=== PATIENT | male | born 1965 | race Caucasian/White ===

== ENCOUNTER 2018-08-14 12:49 | Emergency (ER) | payer BC ==
[2018-08-14 12:55] VITALS: TEMP 97.5; BMI 39.5
[2018-08-14] MEDS ORDERED: SODIUM CHLORIDE 0.9% 1000 ML INFUS.BAG IV ONE (13:47)
[2018-08-14 14:17] LABS: BASO % 1.3 % (0-2.0); EOS % 1.8 % (0-4.5); HEMATOCRIT 43.1 % (35.4-49); HEMOGLOBIN 14.4 GM/dL (11.7-16.9); LYMPH % 33.4 % (8-40); MCHC 33.5 g/dl (32.0-35.9); MEAN CELL VOLUME 83.6 fl (80-96); MONO % 5.4 % (3.8-10.2); NEUT % 58.1 % (42.8-82.8); PLATELET COUNT 245 K/MM3 (134-434); RBC 5.16 M/mm3 (4.00-5.60); RDW 13.9 % (11.9-15.9); WHITE BLOOD COUNT 8.5 K/mm3 (4.0-10.0)
[2018-08-14 14:22] LABS: PH,URINE 6.5 (5.0-8.0); URINE APPEARANCE CLEAR; URINE BILIRUBIN NEGATIVE (NEGATIVE); URINE COLOR YELLOW; URINE GLUCOSE (UA) TRACE (NEGATIVE); URINE KETONE NEGATIVE (NEGATIVE); URINE LEUK ESTERASE NEGATIVE (NEGATIVE); URINE NITRITE NEGATIVE (NEGATIVE); URINE PROTEIN NEGATIVE (NEGATIVE); URINE UROBILINOGEN 0.2 mg/dL (0.2-1.0)
[2018-08-14 14:57] LABS: ALBUMIN 3.8 g/dl (3.4-5.0); ALK PHOS 244 U/L (45-117); ANION GAP 6 MMOL/L (8-16); BILIRUBIN,TOTAL 0.3 mg/dL (0.2-1); BLOOD UREA NITROGEN 15 mg/dL (7-18); CALCIUM 9.4 mg/dL (8.5-10.1); CHLORIDE 104 mmol/L (98-107); CO2 29 mmol/L (21-32); CREATININE 1.1 mg/dL (0.55-1.3); GLUCOSE,RANDOM 230 mg/dL (74-106); POTASSIUM 4.4 mmol/L (3.5-5.1); SGOT/AST 72 U/L (15-37); SGPT/ALT 71 U/L (13-61); SODIUM 139 mmol/L (136-145); TOT PROT 6.8 g/dl (6.4-8.2)
--- NOTE | 2018-08-14 15:40 | PDOC ---
Documentation entered by Alma Reinoso SCRIBE, acting as scribe for Fe Yañez MD. Fe Yañez MD: This documentation has been prepared by the Kemar mclean Daisy, SCRIBE, under my direction and personally reviewed by me in its entirety. I confirm that the documentation accurately reflects all work, treatment, procedures, and medical decision making performed by me. History of Present Illness - General Chief Complaint: Weakness Stated Complaint: LEG WEAKNESS History Source: Patient Exam Limitations: No Limitations - History of Present Illness Initial Comments: 08/14/18 13:46 The patient is a 53 YOM with a PMH of DM, HTN, and HLD who presents to the ER with intermittent leg weakness for the past week. Patient reports the leg weakness begins after prolonged standing or walking that is often worse on the left leg. Last occurred earlier today while leaving his house. He states that once this happens he has to stand and wait for the weakness to subside. He reports he has not been taking his metformin, simvastatin, or blood pressure medication for a couple of months but restarted 4 days ago as he was concerned this may be related to his leg weakness. Denies similar leg weakness in the past. Denies history of MS or family history of similar issues. Admits to urinary frequency. Denies fevers, sob,cp, dizziness, back pain, headache, upper extremity weakness, bladder or bowel incontinence. Allergies: NKDA Social Hx: Denies toxic habits Surgeries: None reported. PCP: Dr. Lawson Past History - Past Medical History Allergies/Adverse Reactions: Allergies Allergy/AdvReac Type Severity Reaction Status Date / Time No Known Allergies Allergy Verified 08/14/18 12:55 COPD: No Diabetes: Yes HTN: Yes Hypercholesterolemia: Yes - Suicide/Smoking/Psychosocial Hx Smoking History: Never smoked Review of Systems - Review of Systems Able to Perform ROS?: Yes Comments:: 08/14/18 13:57 ADULT ROS GENERAL/CONSTITUTIONAL: No fever or chills. No weakness. HEAD, EYES, EARS, NOSE AND THROAT: No change in vision. No ear pain or discharge. No sore throat. CARDIOVASCULAR: No chest pain or shortness of breath. RESPIRATORY: No cough, wheezing, or hemoptysis. GASTROINTESTINAL: No nausea, vomiting, diarrhea or constipation. GENITOURINARY: No dysuria, frequency, or change in urination. MUSCULOSKELETAL: No joint or muscle swelling or pain. No neck or back pain. SKIN: No rash NEUROLOGIC: No headache, vertigo, loss of consciousness, or change in sensation. (+) Leg weakness; Left>right ENDOCRINE: No increased thirst. No abnormal weight change. HEMATOLOGIC/LYMPHATIC: No anemia, easy bleeding, or history of blood clots. ALLERGIC/IMMUNOLOGIC: No hives or skin allergy. *Physical Exam - Vital Signs Last Vital Signs Temp Pulse Resp BP Pulse Ox 97.5 F L 70 18 170/99 99 08/14/18 12:52 08/14/18 12:52 08/14/18 12:52 08/14/18 12:52 08/14/18 12:52 - Physical Exam Comments: 08/14/18 13:58 ADULT EXAM GENERAL: Awake, alert, and fully oriented, in no acute distress HEAD: No signs of trauma EYES: PERRLA, EOMI, sclera anicteric, conjunctiva clear ENT: Auricles normal inspection, hearing grossly normal, nares patent. Moist mucosa NECK: Normal ROM, supple, no lymphadenopathy, JVD, or masses LUNGS: Breath sounds equal, clear to auscultation bilaterally. No wheezes, and no crackles HEART: Regular rate and rhythm, normal S1 and S2, no murmurs, rubs or gallops ABDOMEN: Soft, nontender, normoactive bowel sounds. No guarding, no rebound. No masses EXTREMITIES: Normal range of motion, no edema. No erythema or tenderness. DP/PT pulses 2+ and symmetric. Warm and well perfused. NEUROLOGICAL: Moves all extremities. Normal speech, normal gait. 5/5 strength in all 4 extremities. Sensation is intact. SKIN: Warm, Dry, normal turgor, no rashes or lesions noted. Heart Score/ECG Review #1 General ECG Interpretation: Sinus Rhythm, Normal Rate (62), Normal Intervals, No acute ischemic changes ED Treatment Course - LABORATORY CBC & Chemistry Diagram: 08/14/18 14:05 08/14/18 14:05 - ADDITIONAL ORDERS Additional order review: Laboratory Results 08/14/18 08/14/18 08/14/18 14:06 14:05 14:05 Sodium 139 Potassium 4.4 Chloride 104 Carbon Dioxide 29 Anion Gap 6 L BUN 15 Creatinine 1.1 Creat Clearance w eGFR 70.57 Random Glucose 230 H Calcium 9.4 Total Bilirubin 0.3 AST 72 H ALT 71 H Alkaline Phosphatase 244 H Creatine Kinase 98 Troponin I < 0.02 Total Protein 6.8 Albumin 3.8 Urine Color Yellow Urine Appearance Clear Urine pH 6.5 Ur Specific Nichols 1.012 Urine Protein Negative Urine Glucose (UA) Trace Urine Ketones Negative Urine Blood Negative Urine Nitrite Negative Urine Bilirubin Negative Urine Urobilinogen 0.2 Ur Leukocyte Esterase Negative Acetone, Qual Negative 08/14/18 14:05 RBC 5.16 MCV 83.6 MCHC 33.5 RDW 13.9 MPV 9.0 Neutrophils % 58.1 Lymphocytes % 33.4 Monocytes % 5.4 Eosinophils % 1.8 Basophils % 1.3 - RADIOLOGY Radiology Studies Ordered: Category Date Time Status HEAD CT WITHOUT CONTRAST [CT] Stat CT Scan 08/14/18 14:30 Completed - Medications Given in the ED: ED Medications Discontinued Medications Generic Name Dose Route Start Last Admin Trade Name Freq PRN Reason Stop Dose Admin Sodium Chloride 1,000 ml 08/14/18 13:47 08/14/18 14:13 Normal Saline - IV 08/14/18 13:48 1,000 ml ONCE ONE Administration Medical Decision Making - Medical Decision Making 08/14/18 15:10 Imaging: Head CT Impression: Normal CT scan of the head with no acute intracranial pathology. 08/14/18 15:35 pt with minimal glucose elevation here today. ekg unremarkable. ct head normal. labs otherwise normal. paged dr martínez pt will likley require close followup to discuss with nuerology an pcp. given number for dr garrido group. *DC/Admit/Observation/Transfer Diagnosis at time of Disposition: Weakness - Discharge Dispostion Disposition: HOME Condition at time of disposition: Improved Decision to Admit order: No - Referrals Referrals: Lance Martínez MD [Primary Care Provider] - Tata Garrido MD [Staff Physician] - Catrina Green DO [Staff Physician] - - Patient Instructions Printed Discharge Instructions: DI for Muscle Weakness Additional Instructions: you need to follow up with a nuerologist.see referral information for DR Garrido ( nuerologit ) and call to schedule an appointemnt for next few weeks. your exam today is normal. your strength is good here. your labd including basic white and red blood cell counts are normal. your kidney function is normal. and your electrolytes are normal. your liver test are mildly elevated and will need to be followed up with a general road production manager. call dr Green to schedule to be seen in the next few weeks. you should also follow up wt dr Lawson. call to schedule within one week. return for sudden onset weakness of any kind, changes to speech, fever vomiting or any concerns. you should continue to take your prescribed medication. for blood pressure and sugar control. discontinue your Simvastatin until following up with DR Garrido. - Post Discharge Activity
[2018-08-14 16:12] VITALS: BP 160/85; PULSE 68
--- NOTE | 2018-08-15 10:58 | EKG ---
Test Reason : Blood Pressure : / mmHG Vent. Rate : 062 BPM Atrial Rate : 062 BPM P-R Int : 174 ms QRS Dur : 088 ms QT Int : 430 ms P-R-T Axes : 036 003 027 degrees QTc Int : 436 ms NORMAL SINUS RHYTHM MODERATE VOLTAGE CRITERIA FOR LVH, MAY BE NORMAL VARIANT NONSPECIFIC T WAVE ABNORMALITY ABNORMAL ECG NO PREVIOUS ECGS AVAILABLE Confirmed by NIALL DEMARCO MD ([id number]) on 08/15/2018 10:58:07 AM Referred By: Confirmed By:NIALL DEMARCO MD
== END 2018-08-14 16:12 | disposition home or self-care (01) ==
LOC: JER 12:49
DX: R53.1 Weakness (principal); I10 Essential (primary) hypertension; E78.00 Pure hypercholesterolemia, unspecified; E11.9 Type 2 diabetes mellitus without complications; Z79.84 Long term (current) use of oral hypoglycemic drugs
CPT/HCPCS: 36415; 70450-TC; 80053; 81003; 82009; 82550; 84484; 85025; 93005; 93010; 99283-25; J7030

== ENCOUNTER 2018-09-28 11:28 | Day surgery (SDC) | payer BC | END 2018-09-28 14:35 | disposition home or self-care (01) | LOC: FASU 11:28 ==

== ENCOUNTER 2018-11-09 09:19 | Day surgery (SDC) | payer BC ==
[2018-11-08 15:06] VITALS: BMI 40.3
[2018-11-09 09:58] VITALS: BP 167/113; PULSE 92; TEMP 98.1
== END 2018-11-09 12:11 | disposition home or self-care (01) ==
LOC: FASU-ENDO 09:19
PROVIDERS: ATTEND Internal Medicine Gastroenterology
PROC: 0DJD8ZZ Inspection of Lower Intestinal Tract, Via Natural or Artificial Opening Endoscopic (ICD-10-PCS; principal; 2018-11-09)
DX: Z12.11 Encounter for screening for malignant neoplasm of colon (principal); Z53.09 Procedure and treatment not carried out because of other contraindication
CPT/HCPCS: 82962

== ENCOUNTER 2021-03-31 06:45 | Observation (INO) | payer BC ==
[2021-03-31 07:15] VITALS: BMI 18.6
[2021-03-31] MEDS ORDERED: ASPIRIN 81 MG CHEWABLE TABLETS PO ONE (08:23)
[2021-03-31 08:35] LABS: BASO % 0.5 % (0-2.0); EOS % 3.7 % (0-4.5); HEMATOCRIT 41.7 % (35.4-49); HEMOGLOBIN 14.1 GM/dL (11.7-16.9); LYMPH % 36.8 % (8-40); MCH 28.1 pg (25.7-33.7); MCHC 33.9 g/dl (32.0-35.9); MEAN PLT VOLUME 8.5 fl (7.5-11.1); MONO % 5.4 % (3.8-10.2); NEUT % 53.6 % (42.8-82.8); PLATELET COUNT 277 10^3/uL (134-434); RBC 5.02 M/mm3 (4.00-5.60); RDW 14.1 % (11.9-15.9); WHITE BLOOD COUNT 6.7 K/mm3 (4.0-10.0)
[2021-03-31] MEDS ORDERED: ASPIRIN 81 MG CHEWABLE TABLETS ONE (08:49)
[2021-03-31 08:58] LABS: CALCIUM 8.8 mg/dL (8.5-10.1)
[2021-03-31 08:59] LABS: ALBUMIN 3.6 g/dl (3.4-5.0); BLOOD UREA NITROGEN 15.4 mg/dL (7-18); MAGNESIUM 2.1 mg/dL (1.8-2.4)
[2021-03-31 09:02] LABS: CREATININE 1.1 mg/dL (0.55-1.3)
[2021-03-31 09:04] LABS: BILIRUBIN,TOTAL 0.4 mg/dL (0.2-1); TOT PROT 7.6 g/dl (6.4-8.2)
[2021-03-31 09:08] LABS: N-TERMINAL BNP 213.3 pg/ml (5-125)
[2021-03-31] MEDS: CARVEDILOL 12.5 MG TABLET (FP) PO SCH ×2 (13:00→23:25)
[2021-03-31] MEDS: LISINOPRIL 10 MG TABLET PO SCH (14:00)
[2021-03-31] MEDS ORDERED: LISINOPRIL 5 MG TABLET ONE (14:18)
[2021-03-31] MEDS ORDERED: CARVEDILOL 12.5 MG TABLET (FP) ONE ×2 (14:18→23:19)
[2021-03-31] MEDS: INSULIN SLIDING SCALE (NOVOLOG) 1 VIAL SQ SCH ×2 (17:00→23:23)
[2021-04-01] MEDS ORDERED: LISINOPRIL 5 MG TABLET ONE (09:32)
[2021-04-01] MEDS ORDERED: CARVEDILOL 12.5 MG TABLET (FP) ONE ×2 (09:32→22:46)
[2021-04-01] MEDS ORDERED: ASPIRIN COATED 81 MG TABLET.EC ONE (09:32)
[2021-04-01] MEDS: INSULIN SLIDING SCALE (NOVOLOG) 1 VIAL SQ SCH ×4 (09:43→22:44)
[2021-04-01] MEDS: CARVEDILOL 12.5 MG TABLET (FP) PO SCH ×2 (09:43→22:48)
[2021-04-01] MEDS: ASPIRIN COATED 81 MG TABLET.EC PO SCH (09:44)
[2021-04-01] MEDS: LISINOPRIL 10 MG TABLET PO SCH (09:44)
[2021-04-01] MEDS ORDERED: LISINOPRIL 20 MG TABLET PO SCH (17:07)
[2021-04-01] MEDS ORDERED: CLOPIDOGREL BISULFATE 75 MG TABLET (FP) ONE (20:09)
[2021-04-01] MEDS: CLOPIDOGREL BISULFATE 75 MG TABLET (FP) PO SCH (20:11)
[2021-04-01] MEDS ORDERED: ATORVASTATIN CA 80 MG TABLET (FP) PO SCH (22:00)
[2021-04-01] MEDS ORDERED: ATORVASTATIN CA 80 MG TABLET (FP) ONE (22:46)
[2021-04-02 06:43] LABS: BASO % 0.4 % (0-2.0); EOS % 3.1 % (0-4.5); HEMATOCRIT 42.4 % (35.4-49); HEMOGLOBIN 14.2 GM/dL (11.7-16.9); LYMPH % 41.7 % (8-40); MCH 28.1 pg (25.7-33.7); MCHC 33.5 g/dl (32.0-35.9); MEAN CELL VOLUME 83.8 fl (80-96); MEAN PLT VOLUME 8.4 fl (7.5-11.1); MONO % 6.7 % (3.8-10.2); NEUT % 48.1 % (42.8-82.8); PLATELET COUNT 273 10^3/uL (134-434); RBC 5.06 M/mm3 (4.00-5.60); RDW 14.1 % (11.9-15.9); WHITE BLOOD COUNT 8.9 K/mm3 (4.0-10.0)
[2021-04-02 07:01] LABS: ALBUMIN 3.4 g/dl (3.4-5.0); BLOOD UREA NITROGEN 19.4 mg/dL (7-18); MAGNESIUM 2.3 mg/dL (1.8-2.4)
[2021-04-02 07:04] LABS: CREATININE 1.1 mg/dL (0.55-1.3)
[2021-04-02 07:05] LABS: BILIRUBIN,TOTAL 0.5 mg/dL (0.2-1); CHOLESTEROL 242 mg/dL (50-200); TRIGLYCERIDES 238 mg/dL (0-150)
[2021-04-02 07:06] LABS: LDL CHOLESTEROL (ONLY SJRH) 156 mg/dL (5-100)
[2021-04-02 07:08] LABS: HDL CHOLESTEROL 34 mg/dL (40-60)
[2021-04-02] MEDS ORDERED: POTASSIUM CHLORIDE TABS 20 MEQ TABLET.ER (FP) PO ONE ×2 (07:30→09:18)
[2021-04-02] MEDS: INSULIN SLIDING SCALE (NOVOLOG) 1 VIAL SQ SCH (08:00)
[2021-04-02] MEDS ORDERED: LISINOPRIL 20 MG TABLET ONE (09:40)
[2021-04-02] MEDS ORDERED: ASPIRIN COATED 81 MG TABLET.EC ONE (09:40)
[2021-04-02] MEDS ORDERED: CARVEDILOL 12.5 MG TABLET (FP) ONE (09:40)
[2021-04-02] MEDS ORDERED: CLOPIDOGREL BISULFATE 75 MG TABLET (FP) ONE (09:41)
[2021-04-02] MEDS: CARVEDILOL 12.5 MG TABLET (FP) PO SCH (09:55)
[2021-04-02] MEDS: CLOPIDOGREL BISULFATE 75 MG TABLET (FP) PO SCH (09:55)
[2021-04-02] MEDS: ASPIRIN COATED 81 MG TABLET.EC PO SCH (09:55)
[2021-04-02 11:43] VITALS: BP 155/98; PULSE 73
[2021-04-02 11:44] VITALS: TEMP 97.8
== END 2021-04-02 23:51 | disposition short-term general hospital (02) ==
LOC: JER 06:45 → JERBED 10:45 → INTOOBSV 10:45 → UNDODISOB 04-01 15:51 → JERBED 04-02 11:51
PROVIDERS: ADMIT Internal Medicine; ATTEND Nurse Practitioner Acute Care
PROC: 3E013VG Introduction of Insulin into Subcutaneous Tissue, Percutaneous Approach (ICD-10-PCS; principal; 2021-03-31)
DX: I25.9 Chronic ischemic heart disease, unspecified (principal); I11.0 Hypertensive heart disease with heart failure; Z29.9 Encounter for prophylactic measures, unspecified; R07.9 Chest pain, unspecified; E11.9 Type 2 diabetes mellitus without complications; I50.30 Unspecified diastolic (congestive) heart failure; E78.5 Hyperlipidemia, unspecified
CPT/HCPCS: 36415; 71046-TC-FY; 78452-TC; 80053; 80061; 82550; 82962; 83036; 83690; 83735; 83880; 84484; 85025; 85730; 93005; 93010; 93017; 93306-TC; 99285-25; A9502; C1887; C9803; G0378; U0003; U0005